=== PATIENT | female | born 1970 | race Two or more races ===

== ENCOUNTER 2018-12-25 18:50 | Emergency (ER) | payer BC ==
[~2018-12-25] VITALS: Ht 160 cm; Wt 81.6 kg
[2018-12-25 18:52] VITALS: BP 131/84
--- NOTE | 2018-12-25 19:04 | PHYS DOC ---
Adult General Chief Complaint Chief Complaint: FOOT INJURY PAIN HPI HPI Patient is a 48 year old female who presents with puncture wound to the right foot. Patient states she stepped on a metal piece in [place] one week ago. Denies any fever or drainage from the area. Review of Systems Review of Systems Constitutional: Denies fever or chills [] Musculoskeletal: Reports puncture wound to the right foot Integument: Denies rash or skin lesions [] All other systems were reviewed and found to be within normal limits, except as documented in this note. Allergies Allergies Allergies Coded Allergies Type Severity Reaction Last Updated Verified No Known Drug Allergies 12/25/18 No Physical Exam Physical Exam Constitutional: Well developed, well nourished, no acute distress, non-toxic appearance. [] Skin: Warm, dry, no erythema, no rash. [] Back: No tenderness, no CVA tenderness. [] Extremities: Right medial heel with an open non-infected wound approximately 0.5 cm. There is scabbing around the area. There is no redness, there is no warmth. The heel appears to have calluses. +2 right pedal pulse. Neurologic: Alert and oriented X 3, normal motor function, normal sensory function, no focal deficits noted. [] Psychologic: Affect normal, judgement normal, mood normal. [] Current Patient Data Vital Signs Vital Signs Date Time Temp Pulse Resp B/P (MAP) Pulse Ox O2 Delivery O2 Flow Rate FiO2 12/25/18 18:52 99.2 80 16 131/84 (100) 96 Room Air 99.2 EKG EKG [] Radiology/Procedures Radiology/Procedures [] Course & Med Decision Making Course & Med Decision Making Pertinent Labs and Imaging studies reviewed. (See chart for details) This is a 48-year-old female patient who presents to the ED today with a puncture wound on the right foot after stepping on a metal jeanette a week ago in [place]. The area does not appear infected. Tetanus updated. Right foot x-rays interpreted by Dr. Marquez-negative for any acute findings. Discharged to home with cephalexin prophylaxis. Follow-up with PCP in 1-2 weeks as needed. Dragon Disclaimer Dragon Disclaimer This electronic medical record was generated, in whole or in part, using a voice recognition dictation system. Departure Departure Impression: Primary Impression: Puncture wound of foot Disposition: HOME, SELF-CARE Condition: STABLE Patient Instructions: Puncture Wound, [id number] Additional Instructions: You were evaluated in the emergency room for puncture wound on the right heal, the area does not appear infected. Keep the area clean and dry. We put you on antibiotics prophylaxis. Take the medications as prescribed until completed. We updated his tetanus shot. Scripts Cephalexin (CEPHALEXIN) 500 Mg Tablet 1 TAB PO TID, #30 TAB Prov: DARRIAN VELARDE APRN 12/25/18 Problem Qualifiers Primary Impression: Puncture wound of foot Encounter type: initial encounter Laterality: right Qualified Codes: S91.331A - Puncture wound without foreign body, right foot, initial encounter DARRIAN VELARDE APRN Dec 25, 2018 19:04
[2018-12-25] MEDS ORDERED: CEPH500T PO (19:14)
[2018-12-25] MEDS ORDERED: DIPHTH,PERTUSS(ACELL),TET TOX 0.5 ML DISP.SYRIN. VAX IM ONE (19:15)
--- NOTE | 2018-12-26 00:11 | RAD ---
Three-view right foot radiographs 12/25/2018 CLINICAL HISTORY: Patient stepped on the metal jeanette one week ago. AP, lateral and oblique digital radiographs of the right foot were obtained. No fracture or dislocation of the right foot is seen. No radiopaque foreign body is noted. Mild degenerative changes are seen throughout the interphalangeal joints of the right foot along with the first MTP joint. IMPRESSION: No fracture or radiopaque foreign body is seen. Electronically signed by: Min Evangelista MD (12/26/2018 12:08 AM) [facility]
== END 2018-12-25 19:19 | disposition home or self-care (01) ==
LOC: ER 18:50
DX: S91.331A Puncture wound without foreign body, right foot, initial encounter (principal); W22.8XXA Striking against or struck by other objects, initial encounter; Y93.89 Activity, other specified; Y92.89 Other specified places as the place of occurrence of the external cause; Y99.8 Other external cause status
CPT/HCPCS: 73630; 90471; 90715; 99284